=== PATIENT | male | born 1975 | race Caucasian/White ===

== ENCOUNTER 2016-07-13 22:31 | Emergency (ER) | payer MEDICAID ==
[~2016-07-13] VITALS: Ht 172.7 cm; Wt 101.5 kg
[2016-07-13 22:40] VITALS: Ht 172.7 cm; Wt 101.5 kg
[2016-07-14] MEDS ORDERED: ONDANSETRON (ODT) 4 MG TAB ODT STA (01:14)
--- NOTE | 2016-07-14 01:23 | ERD ---
ER Documentation Chief Complaint Date/Time DATE: 07/14/16 TIME: 01:19 Chief Complaint AP +N/V AND DIARRHEA TODAY HPI 41-year-old male presents to emergency department for complaints of generalized abdominal pain and vomiting and diarrhea that started today. Patient does not have any blood in the stool or black stool. Patient denies any blood in the vomit. Patient had 3 episodes of diarrhea 4 episodes of vomiting. Patient discussed the pain as cramping pain, 4/10 scale, accompanied with vomiting and diarrhea. Patient started to have fever today. Patient denies any flank pain. Patient denies any sick contacts. ROS All systems reviewed and are negative except as per history of present illness. Medications Home Meds Active Scripts Ondansetron (Ondansetron Odt) 4 Mg Tab.rapdis, 4 MG PO Q8 Y for NAUSEA AND/OR VOMITING, #30 TAB Prov:DRISS TAN [employer] 07/14/16 Dicyclomine Hcl* (Bentyl*) 10 Mg Capsule, 20 MG PO QID, #20 CAP Prov:DRISS TAN [employer] 07/14/16 Ibuprofen* (Motrin*) 600 Mg Tab, 600 MG PO Q6H Y for PAIN AND OR ELEVATED TEMP, #30 TAB Prov:DRISS TAN [employer] 07/14/16 Reported Medications [none] Unknown Strength No Conflict Check 07/14/16 Allergies Allergies: Coded Allergies: No Known Allergy (Unverified , 07/13/16) PMhx/Soc Medical and Surgical Hx: pt denies Medical Hx, pt denies Surgical Hx History of Surgery: No (DENIES MEDICAL AND SURGICAL HX.) Hx Alcohol Use: No Hx Substance Use: No Hx Tobacco Use: No Smoking Status: Never smoker FmHx Family History: No coronary disease, No diabetes, No other Physical Exam Vitals Vital Signs Date Time Temp Pulse Resp B/P Pulse Ox O2 Delivery O2 Flow Rate FiO2 07/14/16 02:05 98.9 89 16 102/72 98 Room Air 07/13/16 22:40 100.8 100 18 120/71 97 Physical Exam GENERAL: The patient is well developed and appropriate for usual state of health, in no apparent distress. CHEST: Clear to auscultation bilaterally. There are no rales, wheezes or rhonchi. HEART: Regular rate and rhythm. No murmurs, clicks, rubs or gallops. No S3 or S4. ABDOMEN: Soft, nontender and nondistended. Good bowel sounds. No rebound or guarding. No gross peritonitis. No gross organomegaly or masses. No Melton sign or McBurney point tenderness. BACK: No midline or flank tenderness. EXTREMITIES: Equal pulses bilaterally. There is no peripheral clubbing, cyanosis or edema. No focal swelling or erythema. Full range of motion. Grossly neurovascularly intact. NEURO: Alert and oriented. Cranial nerves 2-12 intact. Motor strength in all 4 extremities with 5/5 strength. Sensation grossly intact. Normal speech and gait. SKIN: There is no apparent rash or petechia. The skin is warm and dry. HEMATOLOGIC AND LYMPHATIC: There is no evidence of excessive bruising or lymphedema. No gross cervical, axillary, or inguinal lymphadenopathy. Results 24 hrs Current Medications Medications (Trade) Dose Ordered Sig/Nisa Route PRN Reason Start Time Stop Time Status Last Admin Dose Admin Ondansetron HCl (Zofran Odt) 4 mg ONCE STAT ODT 07/14/16 01:14 07/14/16 01:16 DC 07/14/16 01:33 Dicyclomine HCl (Bentyl) 20 mg ONCE ONCE PO 07/14/16 01:30 07/14/16 01:31 DC 07/14/16 01:49 Ibuprofen (Motrin) 600 mg ONCE ONCE PO 07/14/16 01:30 07/14/16 01:31 DC 07/14/16 01:49 Acetaminophen (Tylenol Tab) 650 mg ONCE ONCE PO 07/14/16 01:30 07/14/16 01:31 DC 07/14/16 01:49 Patient was given medicines for fever control here in the emergency department. After treatment, patient temperature improved and lower. Patient appears well and is hemodynamically stable. Patient was given Zofran here in the emergency department. After treatment, patient was able to tolerate po fluids here in the emergency department without any vomiting. There is no signs and symptoms of dehydration. Patient was given 20 mg of Bentyl, verbalized feeling much better afterwards. Procedures/MDM Medical Decision Making: Patient's symptoms of abdominal pain and vomiting diarrhea and fever most likely is consistent with viral gastroenteritis. No symptoms of dehydration at this time. Fever is controlled. There is low suspicion for abdominal emergencies at this time. Patients abdominal exam is normal at this time. Radiology exams or laboratory testing is not indicated at this time. There is low suspicion for appendicitis, cholecystitis, abdominal aortic aneurysms or peritonitis at this time. There is low suspicion for sepsis. Patient appears well and is hemodynamically stable. Disposition: Home. Condition: Stable Prescription Bentyl, ibuprofen, Zofran Instructions: Patient is advised to take medications as prescribed. Patient is advised to rest, increase fluid intake and do brat diet for next 1-2 days and progress as tolerated. Patient is advised that if symptoms are worse, severe abdominal pain, uncontrolled vomiting, high fever, severe flank pain, worst signs and symptoms, to return to the emergency department immediately. Otherwise, patient can follow up with primary care doctor in 5-7 days. Departure Diagnosis: Primary Impression: Viral gastroenteritis Condition: Stable Patient Instructions: Gastroenteritis, Viral (6Y-Adult) Additional Instructions: Patient is advised to take medications as prescribed. Patient is advised to rest, increase fluid intake and do brat diet for next 1-2 days and progress as tolerated. Patient is advised that if symptoms are worse, severe abdominal pain , uncontrolled vomiting, high fever, severe flank pain, worst signs and symptoms , to return to the emergency department immediately. Otherwise, patient can follow up with primary care doctor in 5-7 days. DRISS TAN NP July 14, 2016 01:23
[2016-07-14] MEDS ORDERED: ONDA4TAB14 PO (01:24)
[2016-07-14] MEDS ORDERED: IBUP-1542 PO (01:24)
[2016-07-14] MEDS ORDERED: DICY10CA60 PO (01:24)
[2016-07-14] MEDS ORDERED: IBUPROFEN 600 MG TAB PO ONE (01:30)
[2016-07-14] MEDS ORDERED: DICYCLOMINE 10 MG CAP PO ONE (01:30)
[2016-07-14] MEDS ORDERED: ACETAMINOPHEN 325 MG TAB PO ONE (01:30)
[2016-07-14 02:05] VITALS: BP 102/72; PULSE 89; RESP 16; TEMP 98.9
== END 2016-07-14 02:07 | disposition home or self-care (01) ==
LOC: FTE 22:31
DX: A08.4 Viral intestinal infection, unspecified (principal)
CPT/HCPCS: Z7502; Z7610; 99284